=== PATIENT | female | born 1960 | race Caucasian/White ===

== ENCOUNTER 2020-02-06 07:45 | Outpatient (CLI) | payer OTHER, SELFPAY ==
--- NOTE | 2020-02-06 07:54 | US_ITS ---
WS: [id number] ULTRASOUND BREAST LEFT TECHNIQUE: Ultrasound left breast focused area of concern. CLINICAL INFORMATION: PROBABLE INTRAMAMMARY LYMPH NODE 1200 LT BREAST COMPARISON: Ultrasound August 10, 2019 FINDINGS: At the 12:00 position again seen is the ovoid shaped lesion most consistent with intramammary lymph n ode measuring 1.0 x 0.5 x 0.9 cm. This is unchanged from previous. Tiny cyst at the 3:00 position measuring 3 mm. Additional small cystic lesion at the 3:00 position me asuring 4.2 x 4.6 x 5.1 mm. This is unchanged from previous. US/US breast LT limited* [id number] IMPRESSION: BI-RADS 2 benign RECOMMEND RETURN TO ANNUAL SCREENING MAMMOGRAPHY.
== END 2020-02-06 07:46 | disposition home or self-care (01) ==
LOC: RADSHAW 07:49
PROVIDERS: Family Provider Nurse Practitioner; PCP Nurse Practitioner; Visit Provider Nurse Practitioner
DX: N60.02 Solitary cyst of left breast (principal); R92.8 Other abnormal and inconclusive findings on diagnostic imaging of breast
CPT/HCPCS: 76642

== ENCOUNTER → 2020-07-04 10:52 | Outpatient (BNVA) | payer OTHER, SELFPAY | PROVIDERS: Family Provider Nurse Practitioner; Visit Provider Obstetrics & Gynecology | DX: N90.89 Other specified noninflammatory disorders of vulva and perineum (principal) | CPT/HCPCS: 88305 ==

== ENCOUNTER 2020-08-03 09:20 | Outpatient (CLI) | payer OTHER, SELFPAY ==
--- NOTE | 2020-08-03 09:30 | MM_ITS ---
WS: [id number] BILATERAL DIGITAL SCREENING MAMMOGRAPHY WITH CAD CLINICAL INFORMATION: screening HISTORY: Screening mammogram. No current complaints. COMPARISON: TECHNIQUE: Bilateral CC and MLO views. FINDINGS: The breasts are composed of heterogeneous fibroglandular density tissue, which can limit the detectio n of small underlying mass lesions. No suspicious mass, asymmetry, calcifications, or architectural d istortion. No evidence of malignancy. MM/[place] [id number] IMPRESSION: BI-RADS: 2-Benign FOLLOW UP: 1 Year Follow-up Recommend return to annual screening mammography.
== END 2020-08-03 09:21 | disposition home or self-care (01) ==
LOC: RADSHAW 09:23
PROVIDERS: PCP Nurse Practitioner; Visit Provider Obstetrics & Gynecology
DX: Z12.31 Encounter for screening mammogram for malignant neoplasm of breast (principal)
CPT/HCPCS: 77067

== ENCOUNTER → 2020-10-30 14:05 | Outpatient (BNVA) | payer OTHER, SELFPAY | PROVIDERS: PCP Nurse Practitioner; Visit Provider Obstetrics & Gynecology | DX: N90.89 Other specified noninflammatory disorders of vulva and perineum (principal) | CPT/HCPCS: 88305 ==

== ENCOUNTER → 2021-06-26 10:10 | Outpatient (BNVA) | payer OTHER, SELFPAY | PROVIDERS: PCP Nurse Practitioner; Visit Provider Obstetrics & Gynecology | DX: Z12.4 Encounter for screening for malignant neoplasm of cervix (principal); N90.4 Leukoplakia of vulva | CPT/HCPCS: 88175 ==

== ENCOUNTER 2021-08-07 11:17 | Outpatient (CLI) | payer OTHER, SELFPAY ==
--- NOTE | 2021-08-07 11:30 | MM_ITS ---
WS: [id number] BILATERAL DIGITAL SCREENING MAMMOGRAPHY WITH CAD CLINICAL INFORMATION: SCREENING HISTORY: Screening mammogram. No current complaints. COMPARISON: August 03, 2020 TECHNIQUE: Bilateral CC and MLO views. FINDINGS: Scattered fibroglandular densities bilaterally. Dense breast tissue upper outer left breast is unchan ged. No suspicious focal mass, asymmetry, calcifications, or architectural distortion. No evidence of malignancy. MM/[place] [id number] IMPRESSION: BI-RADS: 2-Benign FOLLOW UP: 1 Year Follow-up Recommend return to annual screening mammography.
== END 2021-08-07 11:18 | disposition home or self-care (01) ==
LOC: RADSHAW 11:21
PROVIDERS: PCP Nurse Practitioner; Visit Provider Obstetrics & Gynecology
DX: Z12.31 Encounter for screening mammogram for malignant neoplasm of breast (principal)
CPT/HCPCS: 77067

== ENCOUNTER 2022-08-15 07:00 | Outpatient (CLI) | payer OTHER, SELFPAY ==
--- NOTE | 2022-08-15 07:15 | MM_ITS ---
WS: [id number] Bilateral screening 3D tomosynthesis digital mammogram, 08/15/2022 Clinical Data: Z12.39 - Encounter for other screening for malignant neop... Comparison: 08/07/2021, 08/03/2020, 08/10/2019, 07/15/2019, 06/18/2018, 07/15/2017, 04/21/2016, 03/28/2015, 01/28, 01/12/2013, 07/28/2011, 01/11/2010, 12/22/2028, 12/09/2006. Findings: The breast parenchymal pattern shows fibroglandular tissue No spiculated masses or clustered calcific ations are seen. There are no secondary signs of carcinoma. MM/[place] [id number] Impression: 1. Negative bilateral mammogram unchanged. 2. Recommend annual screening mammograms. BIRADS: 1-Negative FOLLOW UP: 1 Year Follow-up The CAD roller checker was used.
== END 2022-08-15 07:01 | disposition home or self-care (01) ==
LOC: RAD 07:01
PROVIDERS: PCP Nurse Practitioner; Visit Provider Obstetrics & Gynecology
DX: Z12.31 Encounter for screening mammogram for malignant neoplasm of breast (principal)
CPT/HCPCS: 77063; 77067

== ENCOUNTER 2023-08-20 10:00 | Day surgery (SDC) | payer OTHER, SELFPAY ==
[2023-08-20 10:18] VITALS: BP 163/102; PULSE 58; RESP 18; TEMP 36.3; O2SAT 97
--- NOTE | 2023-08-20 10:19 | P.ANESASSM_ITS ---
Pre-Anesthetic Assessment Height/Weight: Height 1.52 m Weight 74.843 kg Preop Diagnosis: screening Operation Date: 08/20/23 11:00 Proposed Procedures p Colonoscopy 84069,Z12.11(Not Applicable) - Jakub Alonso MD Was Beta Lito taken within 24 hours: Yes Was Clonidine taken within 24 hours: N/A Last Intake: 23:00 Social No alcohol and No tobacco Exam alert, oriented x 3, clear to auscultation bilaterally and regular rate & rhythm Airway Submandibular: within normal limits Cervical ROM: within normal limits Mallampati: Class II Dentition: partials (upper) Pulmonary Sleep Apnea (CPAP) and None reported CV/HEM Hypertension and Palpitations None reported Hepatic None reported GI Gastroesophageal Reflux Disease Metabolic None reported Musc/skel Lower Back Pain and Osteoarthritis/DJD Neuropsych None reported Anesthetic Plan ASA status: 3 Anesthesia: MAC Risk of > 500 ml blood loss (7ml/kg in children): No Medications/Allergies Home Medications Medication Instructions Recorded Confirmed Last Taken Type aspirin 81 mg tablet,delayed 81 mg PO DAILY 06/25/20 08/19/23 08/18/23 History release gabapentin 600 mg tablet 600 mg PO TID 06/25/20 08/20/23 08/20/23 History magnesium oxide 400 mg PO DAILY 06/25/20 08/19/23 08/18/23 History methocarbamol 500 mg tablet 500 mg PO TID PRN muscle spasms 06/25/20 08/19/23 08/18/23 History naproxen sodium 220 mg capsule 220 mg PO BID PRN Pain 06/25/20 08/19/23 08/18/23 History (Aleve) omeprazole 20 mg capsule,delayed 20 mg PO DAILY 06/25/20 08/19/23 08/20/23 History release simvastatin 20 mg tablet 20 mg PO DAILY 06/25/20 08/19/23 08/18/23 History tramadol 50 mg tablet 50 mg PO BID 06/25/20 08/19/23 08/20/23 History carvedilol 6.25 mg tablet 6.25 mg PO BID #180 tabs 06/30/20 08/19/23 08/20/23 Rx lisinopril 20 mg tablet 20 mg PO DAILY #90 tabs 09/03/20 08/19/23 08/18/23 Rx conjugated estrogens 0.625 mg/gram See Rx Instructions vaginal .weekly 06/26/21 08/19/23 08/18/23 History vaginal cream (Premarin) clobetasol 0.05 % topical cream 1 applic topical .weekly #30 grams 07/20/23 08/19/23 08/18/23 Rx ferrous sulfate 325 mg (65 mg 325 mg PO DAILY 08/19/23 08/19/23 08/18/23 History iron) tablet (iron) Allergies Allergy/AdvReac Type Severity Reaction Status Date / Time codeine Allergy Upset GI Verified 08/19/23 12:47 [facility] Anesthesia Medical History Benign essential hypertension Diagnosed in her 40s. She used to follow-up with Dr. Abarca in cardiology but now follows up with her primary care provider. Blood pressures are well controlled with medication. Chronic back pain Takes pain medication for this managed by primary care provider and gabapentin for associated neuropathy. GERD (gastroesophageal reflux disease) Symptoms controlled with medication High cholesterol Diagnosed in 2014 and controlled with medication managed by her primary care provider No pertinent past medical history Denies diabetes, seizures, DVT/PE, asthma PMD: Mabry Surgical History S/P dilation and curettage 05/20/2018-----> hysteroscopy and D&C under ultrasound guidance done for stenotic cervix and postmenopausal bleeding by Dr. Sin at [facility] [place]. At time of hysteroscopy no lesions noted in the endocervical endometrial cavity and endometrial curettings were obtained and pathology of this showed------> atrophic endometrium with benign superficial myometrium, no malignancy hyperplasia or endometritis. S/P tubal ligation 1997--> done laparoscopically through her umbilicus. 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
[2023-08-20] MEDS: sodium chloride 0.9% 1,000 ML 30 ML IV (10:20)
--- NOTE | 2023-08-20 10:21 | W.PM.OPSFHP ---
Same Day Surgery H&P Indication for Procedure/HPI DATE OF PROCEDURE: August 20, 2023 CHIEF COMPLAINT/INDICATIONFOR SURGICAL PROCEDURE: screening for colon cancer PREOP DIAGNOSIS: encounter for screening of colon cancer PLANNED PROCEDURE: Operation Date: 08/20/23 11:00 Proposed Procedures p Colonoscopy 20506,Z12.11(Not Applicable) - Jakub Alonso MD Medications/Allergies* Home Medications Medication Instructions Recorded Confirmed Type aspirin 81 mg tablet,delayed 81 mg PO DAILY 06/25/20 08/19/23 History release gabapentin 600 mg tablet 600 mg PO TID 06/25/20 08/20/23 History magnesium oxide 400 mg PO DAILY 06/25/20 08/19/23 History methocarbamol 500 mg tablet 500 mg PO TID PRN muscle spasms 06/25/20 08/19/23 History naproxen sodium 220 mg capsule 220 mg PO BID PRN Pain 06/25/20 08/19/23 History (Aleve) omeprazole 20 mg capsule,delayed 20 mg PO DAILY 06/25/20 08/19/23 History release simvastatin 20 mg tablet 20 mg PO DAILY 06/25/20 08/19/23 History tramadol 50 mg tablet 50 mg PO BID 06/25/20 08/19/23 History conjugated estrogens 0.625 mg/gram See Rx Instructions vaginal .weekly 06/26/21 08/19/23 History vaginal cream (Premarin) ferrous sulfate 325 mg (65 mg 325 mg PO DAILY 08/19/23 08/19/23 History iron) tablet (iron) Allergies/Adverse Reactions Allergy/AdvReac Type Severity Reaction Status Date / Time codeine Allergy Upset GI Verified 08/19/23 12:47 Pertinent History/Comorbid Conditions* Medical History (Updated 07/10/22 @ 13:45 by Yair Marr MD) Benign essential hypertension Diagnosed in her 40s. She used to follow-up with Dr. Abarca in cardiology but now follows up with her primary care provider. Blood pressures are well controlled with medication. Chronic back pain Takes pain medication for this managed by primary care provider and gabapentin for associated neuropathy. GERD (gastroesophageal reflux disease) Symptoms controlled with medication High cholesterol Diagnosed in 2014 and controlled with medication managed by her primary care provider No pertinent past medical history Denies diabetes, seizures, DVT/PE, asthma PMD: Mabry Surgical History (Updated 06/27/20 @ 07:50 by Yair Marr MD) S/P dilation and curettage 05/20/2018-----> hysteroscopy and D&C under ultrasound guidance done for stenotic cervix and postmenopausal bleeding by Dr. Sin at [facility] [place]. At time of hysteroscopy no lesions noted in the endocervical endometrial cavity and endometrial curettings were obtained and pathology of this showed------> atrophic endometrium with benign superficial myometrium, no malignancy hyperplasia or endometritis. S/P tubal ligation 1997--> done laparoscopically through her umbilicus. 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 Family History (Updated 07/09/22 @ 13:35 by Alejandra Mathias RN) AAA (abdominal aortic aneurysm) Father Heart disease Mother Hyperlipidemia Mother Breast cancer Mother Diagnosed at age 64 Hypertension Mother Father Stroke Mother Father Brother Denies family history of Colon cancer Ovarian cancer Diabetes DVT (deep venous thrombosis) Pulmonary embolism Uterine cancer Thyroid condition Social History Substance/Drug Use: unknown Pertinent Exam Findings alert, oriented x 3, clear to auscultation bilaterally, regular rate & rhythm and procedure specific exam findings (abdomen soft and non tender) Recommendations Surgery/Procedure today Other Plans: After a complete history, physical examination and review of all available clinical data. I have offer screening colonoscopy as indicated by the current guidelines. I have discussed all the risks and benefits of the colonoscopy. Including, the risk of perforation requiring surgical intervention, rectal bleeding, incomplete colonoscopy requiring repeat procedure in 3 months, missed polyps, need for additional procedures. Patient shows understanding and wishes to proceed. Coding Level of Care Code Acute Code for Chg Fwd Diagnoses
[2023-08-20 11:03] VITALS: BP 118/52; PULSE 52; RESP 18; TEMP 36.4; O2SAT 96
[2023-08-20 11:16] VITALS: BP 117/73; PULSE 57; RESP 18; O2SAT 99
--- NOTE | 2023-08-20 11:30 | ANE.PACU2 ---
Inpatient post-anesthesia follow up: Airway intact: Yes Vital signs: Temperature 97.5 F Pulse Rate 57 Respiratory Rate 18 Blood Pressure 117/73 Pulse Oximetry 99 Oxygen Delivery Me thod Room Air Oxygen Flow Rate Fraction of Inspir ed Oxygen Hydration adequate: Yes Nausea and vomiting: No Pain level: 1 Mental status: Baseline
== END 2023-08-20 11:45 | disposition home or self-care (01) ==
PROVIDERS: PCP Nurse Practitioner Family; Visit Provider Surgery
PROC: 0DJD8ZZ Inspection of Lower Intestinal Tract, Via Natural or Artificial Opening Endoscopic (ICD-10-PCS; CPT 45378; principal; 2023-08-20 11:00)
DX: Z12.11 Encounter for screening for malignant neoplasm of colon (principal); D12.8 Benign neoplasm of rectum; Z79.82 Long term (current) use of aspirin; I10 Essential (primary) hypertension; K21.9 Gastro-esophageal reflux disease without esophagitis; G47.30 Sleep apnea, unspecified
CPT/HCPCS: 45380; 88305; J2704; J7030

== ENCOUNTER 2023-09-08 09:02 | Outpatient (CLI) | payer OTHER, SELFPAY ==
--- NOTE | 2023-09-08 09:26 | MM_ITS ---
WS: [id number] BILATERAL 3D TOMOSYNTHESIS DIGITAL SCREENING MAMMOGRAPHY WITH CAD CLINICAL INFORMATION: SCREENING HISTORY: Screening mammogram. No current complaints. COMPARISON: 08/15/2022 TECHNIQUE: Bilateral CC and MLO views. FINDINGS: The breasts are composed of heterogeneous fibroglandular density tissue, which can limit the detectio n of small underlying mass lesions. No suspicious mass, asymmetry, calcifications, or architectural d istortion. No evidence of malignancy. IMPRESSION: MM/[place] [id number] BI-RADS: 2-Benign FOLLOW UP: 1 Year Follow-up Recommend return to annual screening mammography.
== END 2023-09-08 09:03 | disposition home or self-care (01) ==
PROVIDERS: PCP Nurse Practitioner Family; Visit Provider Nurse Practitioner Family
DX: Z12.31 Encounter for screening mammogram for malignant neoplasm of breast (principal)
CPT/HCPCS: 77063; 77067

== ENCOUNTER 2023-10-21 09:47 | Outpatient (CLI) | payer OTHER, SELFPAY ==
--- NOTE | 2023-10-21 09:58 | XRR_ITS ---
PROCEDURE INFORMATION: Exam: XR Lumbosacral Spine Exam date and time: 10/21/2023 10:05 AM Age: 63 years old Clinical indication: Low back pain; Additional info: Chronic pain TECHNIQUE: Imaging protocol: Radiologic exam of the lumbosacral spine. Views: 2 or 3 views. COMPARISON: No relevant prior studies available. FINDINGS: Bones/joints: Moderate disc space narrowing L5-S1. All of the disc spaces are well maintained. No significant spurring. No fracture or dislocation. Pedicles are intact. Soft tissues: The perivertebral soft tissues are normal. XR/XR lumbar spine 2-3V* [id number] IMPRESSION: 1. No acute findings. 2. Focal degenerative disc disease.
--- NOTE | 2023-10-21 09:58 | XRR_ITS ---
PROCEDURE INFORMATION: Exam: XR Cervical Spine Exam date and time: 10/21/2023 10:05 AM Age: 63 years old Clinical indication: Neck pain; Additional info: Chronic pain TECHNIQUE: Imaging protocol: Radiologic exam of the cervical spine. Views: 2 or 3 views. COMPARISON: No relevant prior studies available. FINDINGS: Bones/joints: Moderate disc space narrowing and spurring C5 through C7. 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 No fracture or dislocation. Anatomic alignment. Soft tissues: Unremarkable. XR/XR cervical spine 3V* [id number] IMPRESSION: 1. No acute findings. 2. Degenerative changes.
== END 2023-10-21 09:48 | disposition home or self-care (01) ==
LOC: RAD 09:50
PROVIDERS: PCP Nurse Practitioner Family; Visit Provider Nurse Practitioner Family
DX: M54.2 Cervicalgia (principal); M54.9 Dorsalgia, unspecified; M50.30 Other cervical disc degeneration, unspecified cervical region; M51.37 Other intervertebral disc degeneration, lumbosacral region
CPT/HCPCS: 72040; 72100

== ENCOUNTER 2024-09-22 14:06 | Outpatient (CLI) | payer OTHER, SELFPAY ==
--- NOTE | 2024-09-22 14:08 | MM_ITS ---
WS: [id number] BILATERAL SCREENING DIGITAL TOMOSYNTHESIS MAMMOGRAM WITH CAD HISTORY: SCREENING COMPARISON: 09/08/2023, 08/15/2022, 08/07/2021 Bilateral CC and MLO views with tomosynthesis and synthetic mammography submitted. Computer aided det ection analyzed. Breast composition: There are scattered areas of fibroglandular density. No suspicious masses, microc alcifications or architectural distortion. Focal asymmetry RIGHT breast at 9:00 has been stable on se veral prior examinations extending back to 08/07/2021. No new mass or nodule. MM/MM scr BI tomosynthesis [id number] IMPRESSION: BI-RADS: 2 - Benign. FOLLOW UP: 1 Year Follow-up
== END 2024-09-22 14:07 | disposition home or self-care (01) ==
LOC: RAD 14:07
PROVIDERS: PCP Nurse Practitioner Family; Visit Provider Nurse Practitioner Family
DX: Z12.31 Encounter for screening mammogram for malignant neoplasm of breast (principal); R92.323 Mammographic fibroglandular density, bilateral breasts; N64.89 Other specified disorders of breast
CPT/HCPCS: 77063; 77067

== ENCOUNTER 2024-12-01 10:50 | Outpatient (CLI) | payer OTHER, SELFPAY ==
--- NOTE | 2024-12-01 11:00 | XRR_ITS ---
PROCEDURE INFORMATION: Exam: XR Cervical Spine Exam date and time: 12/01/2024 11:15 AM Age: 64 years old Clinical indication: Cervicalgia; Patient HX: Pain in neck and upper back, upper back pain runs across laterally, numbness in hands; Additional info: M54.2 - cervicalgia TECHNIQUE: Imaging protocol: Radiologic exam of the cervical spine. Views: 2 or 3 views. COMPARISON: CR XR cervical spine 3V* [id number] 10/21/2023 10:05 AM FINDINGS: Bones/joints: A fusion anomaly is noted at the C3-C4 level. Prominent degenerative disc disease is noted at the C5-C6 level along with vertebral body spurring. No fracture or subluxation noted. Soft tissues: Unremarkable. XR/XR cervical spine 3V* [id number] IMPRESSION: No acute findings.
--- NOTE | 2024-12-01 11:00 | XRR_ITS ---
PROCEDURE INFORMATION: Exam: XR Thoracic Spine Exam date and time: 12/01/2024 11:15 AM Age: 64 years old Clinical indication: Pain in thoracic spine; Patient HX: Pain in neck and upper back, upper back pain runs across laterally, numbness in hands; Additional info: M54.9 - dorsalgia, unspecified TECHNIQUE: Imaging protocol: Radiologic exam of the thoracic spine. Views: 3 views. COMPARISON: CR XR cervical spine 3V* [id number] 12/01/2024 11:15 AM FINDINGS: Bones/joints: Mild scoliosis is noted.No significant arthritic changes are noted. No acute fracture or subluxation noted. Soft tissues: Unremarkable. XR/XR thoracic spine 3V* [id number] IMPRESSION: No acute findings.
== END 2024-12-01 10:51 | disposition home or self-care (01) ==
LOC: RAD 10:57
PROVIDERS: PCP Nurse Practitioner Family; Visit Provider Nurse Practitioner Family
DX: M54.2 Cervicalgia (principal); M54.9 Dorsalgia, unspecified; M41.84 Other forms of scoliosis, thoracic region; M43.22 Fusion of spine, cervical region
CPT/HCPCS: 72040; 72072

== ENCOUNTER 2025-01-06 07:46 | Outpatient (CLI) | payer OTHER, SELFPAY ==
--- NOTE | 2025-01-06 08:00 | MR_ITS ---
WS: [id number] MRI THORACIC SPINE WITHOUT CONTRAST TECHNIQUE: Sagittal T1, T2 and STIR imaging. Axial T2 imaging. Noncontrast imaging obtained. CLINICAL INFORMATION: G89.29 - Other chronic pain COMPARISON: None. FINDINGS: Moderate to advanced thoracic kyphosis. No acute compression fractures. Cord signal appears normal. Normal CSF pulsation artifact in the dorsal spinal canal. Minimal anterior wedging in the midthoracic spine. Mild spondylitic changes. Tiny syrinx partially visualized in the lower cervical and upper thoracic cord. Additional larger syrinx in the lower thoracic cord measuring approximately 2 mm in AP dimension. Cord signal is otherwise normal. No significant disc extrusions or protrusions. Large esophageal hiatal hernia with partial intrathoracic stomach. Normal caliber descending thoracic aorta. Adrenal glands are normal. Moderate facet arthropathy lower thoracic spine. MR/MR thoracic spin wo con* [id number] IMPRESSION: 1. Moderate thoracic kyphosis. No acute compression fractures. 2. Two Millimeter syrinx in the lower thoracic cord at T8-T10. 3. Tiny syrinx partially visualized in the lower cervical spine. This could be further evaluated with cervical spine MRI. 4. Mild chronic anterior wedging T5-T7. 5. Tiny central protrusions at T5-T7. 6. Large esophageal canal hernia with partial intrathoracic stomach.
== END 2025-01-06 07:47 | disposition home or self-care (01) ==
LOC: RAD 07:48
PROVIDERS: PCP Nurse Practitioner Family; Visit Provider Nurse Practitioner Family
DX: G89.29 Other chronic pain (principal); M40.294 Other kyphosis, thoracic region; R93.7 Abnormal findings on diagnostic imaging of other parts of musculoskeletal system; G95.0 Syringomyelia and syringobulbia; M48.54XA Collapsed vertebra, not elsewhere classified, thoracic region, initial encounter for fracture; K44.9 Diaphragmatic hernia without obstruction or gangrene; R93.3 Abnormal findings on diagnostic imaging of other parts of digestive tract; M47.894 Other spondylosis, thoracic region
CPT/HCPCS: 72146

== ENCOUNTER 2025-04-26 11:05 | Outpatient (CLI) | payer OTHER, SELFPAY ==
--- NOTE | 2025-04-26 11:12 | XR_ITS ---
WS: [id number] Mandible series, 4 views, 04/26/2025 Clinical Data: R68.84 - Jaw pain Comparison: None. Findings: No fractures or dislocations are seen. The mandibular condyle and rami are intact. The patient has poor dentition. The temporomandibular joints show no definite erosions or displacement. XR/XR mandible <4V [id number] Impression: Negative mandible series.
== END 2025-04-26 11:06 | disposition home or self-care (01) ==
LOC: LAB 11:06 → RAD 11:07
PROVIDERS: PCP Nurse Practitioner Family; Visit Provider Nurse Practitioner Family
DX: R68.84 Jaw pain (principal)
CPT/HCPCS: 70100

== ENCOUNTER 2025-09-25 13:44 | Outpatient (CLI) | payer OTHER, SELFPAY ==
--- NOTE | 2025-09-25 14:00 | MM_ITS ---
WS: [id number] BILATERAL 3D TOMOSYNTHESIS DIGITAL SCREENING MAMMOGRAPHY WITH CAD CLINICAL INFORMATION: Z12.31 - Encounter for screening mammogram for malignant ... HISTORY: Screening mammogram. No current complaints. COMPARISON: 09/22/2024 TECHNIQUE: Bilateral CC and MLO views. FINDINGS: Scattered fibroglandular densities bilaterally. No suspicious focal mass, asymmetry, calcifications, or architectural distortion. No evidence of malignancy. A few incidental punctate calcifications. MM/MM [facility] tomosynthesis [id number] IMPRESSION: DENSITY: There are scattered areas of fibroglandular density. BI-RADS: 2 - Benign. FOLLOW UP: 1 Year Follow-up Recommend return to annual screening mammography.
== END 2025-09-25 13:45 | disposition home or self-care (01) ==
LOC: RAD 13:44
PROVIDERS: PCP Nurse Practitioner Family; Visit Provider Nurse Practitioner Women's Health
DX: Z12.31 Encounter for screening mammogram for malignant neoplasm of breast (principal); R92.323 Mammographic fibroglandular density, bilateral breasts; R92.1 Mammographic calcification found on diagnostic imaging of breast
CPT/HCPCS: 77063; 77067

== ENCOUNTER 2025-10-24 11:08 | Outpatient (CLI) | payer OTHER, SELFPAY ==
--- NOTE | 2025-10-24 11:17 | XRR_ITS ---
PROCEDURE INFORMATION: Exam: XR Chest Exam date and time: 10/24/2025 11:24 AM Age: 65 years old Clinical indication: Dyspnea; PT states HX of acid reflux & esophagial hernia x few years. SOB x 2 months. ; Additional info: R06.00 - dyspnea, unspecified TECHNIQUE: Imaging protocol: Radiologic exam of the chest. Views: 2 views. COMPARISON: MR thoracic spin wo con* [id number] 01/06/2025 8:00 AM FINDINGS: Lungs: Pulmonary vessels are within normal limits. Right midlung field linear scarring. Right midlung field peripheral 4 mm calcified granuloma. Pleural spaces: No pneumothorax. Heart/Mediastinum: Large hiatal hernia. Bones/joints: Achilles silhouette XR/XR chest 2V* [id number] IMPRESSION: 1. No acute pulmonary finding. 2. Large hiatal hernia.
== END 2025-10-24 11:09 | disposition home or self-care (01) ==
LOC: RAD 11:10
PROVIDERS: PCP Nurse Practitioner Family; Visit Provider Nurse Practitioner Family
DX: R06.00 Dyspnea, unspecified (principal); K44.9 Diaphragmatic hernia without obstruction or gangrene
CPT/HCPCS: 71046

== ENCOUNTER 2025-11-29 06:23 | Day surgery (SDC) | payer OTHER, SELFPAY ==
[2025-11-29 06:39] VITALS: BP 162/82; PULSE 58; RESP 16; TEMP 36.4; O2SAT 97; BMI 26.2
--- NOTE | 2025-11-29 06:46 | P.HPUD_ITS ---
Surgery/Procedure H&P Update DATE OF PROCEDURE: November 29, 2025 DATE H&P PERFORMED: 11/01/25 H&P UPDATE INFORMATION: I have reviewed H&P completed within last 30 days, I have examined patient prior to procedure, No changes to prior documentation, H&P is in [facility] EMR on date indicated and Risks and benefits of the procedure reviewed PLANNED PROCEDURE: Operation Date: 11/29/25 07:40 Proposed Procedures p EGD EGD with Biopsy [id number] K44.9(Not Applicable) - Jakub Alonso MD
--- NOTE | 2025-11-29 07:15 | ANES.PREANE2 ---
Pre-Anesthetic Assessment Height/Weight: Height 1.65 m Weight 71.668 kg Temp Pulse Resp BP Pulse Ox O2 Del Method 97.5 F L 58 L 16 162/82 97 Room Air 11/29/25 06:39 11/29/25 06:39 11/29/25 06:39 11/29/25 06:39 11/29/25 06:39 11/29/25 06:39 Operation Date: 11/29/25 07:40 Proposed Procedures p EGD EGD with Biopsy [id number] K44.9(Not Applicable) - Jakub Alonso MD Familial anesthetic complications: none Was Beta Lito taken within 24 hours: Yes Was Clonidine taken within 24 hours: N/A Last intake: Intake Last Liquid Date 11/28/25 Last Liquid Time 19: Last Solid Date 11/28/25 Last Solid Time 19:30 Social No alcohol and No tobacco Exam alert and oriented x 3 Airway Submandibular: within normal limits Cervical ROM: within normal limits Mallampati: Class II Dentition: partials History/ROS No significant history except as noted Pulmonary Exertional Dyspnea and Sleep Apnea (cpap) CV/HEM Arrythmia (on carvedilol) and Hypertension None reported Hepatic None reported GI Gastroesophageal Reflux Disease (controlled with omeprazole) Metabolic Hyperlipidemia Musc/skel Lower Back Pain and Osteoarthritis/DJD Neuropsych None reported Anesthetic Plan ASA status: 3 Anesthesia: Anesthesia Evaluation and MAC Risk of > 500 ml blood loss (7ml/kg in children): No Medications/Allergies Home Medications ?Medication ?Instructions ?Recorded ?Confirmed ?Last Taken ?Type aspirin 81 mg tablet,delayed 81 mg PO DAILY 06/25/20 11/29/25 11/28/25 History release magnesium oxide 400 mg PO DAILY 06/25/20 11/29/25 11/28/25 History calcium acetate(phosphat bind) 667 667 mg PO DAILY 10/05/24 11/29/25 11/28/25 History mg tablet cpap 1 dose as directed .nightly 10/05/24 11/29/25 11/28/25 History carvedilol 6.25 mg tablet 6.25 mg PO BID #180 tabs 01/16/25 11/29/25 11/28/25 Rx clobetasol 0.05 % topical cream 1 applic topical .weekly #30 grams 07/27/25 11/29/25 11/28/25 Rx tramadol 50 mg tablet 50 mg PO BID PRN pain #60 tabs 08/09/25 11/29/25 11/28/25 Rx simvastatin 40 mg tablet 40 mg PO DAILY #90 tabs 09/25/25 11/29/25 11/28/25 Rx gabapentin 600 mg tablet 600 mg PO TID 11/27/25 11/29/25 11/28/25 History lisinopril 20 mg tablet 20 mg PO DAILY 11/27/25 11/29/25 11/28/25 History omeprazole 20 mg capsule,delayed 20 mg PO DAILY 11/27/25 11/29/25 11/28/25 History release Allergies Allergy/AdvReac Type Severity Reaction Status Date / Time codeine Allergy Upset GI Verified 11/29/25 06:38 Current Medications Generic Name Dose Route Start Last Admin Trade Name Freq PRN Reason Stop Dose Admin Sodium Chloride 1,000 mls @ 15 mls/hr 11/29/25 06:30 11/29/25 06:53 Sodium Chloride 0.9% IV 11/30/25 06:29 15 mls/hr .Q24H PRN Administration COLONOSCOPY FLUIDS PFSH Anesthesia Medical History Obstructive sleep apnea High cholesterol Diagnosed in 2014 and controlled with medication managed by her primary care provider Chronic back pain Takes pain medication for this managed by primary care provider and gabapentin for associated neuropathy. No pertinent past medical history Denies diabetes, seizures, DVT/PE, asthma PMD: Mabry GERD (gastroesophageal reflux disease) Symptoms controlled with medication Benign essential hypertension Diagnosed in her 40s. She used to follow-up with Dr. Abarca in cardiology but now follows up with her primary care provider. Blood pressures are well controlled with medication. Surgical History S/P tubal ligation 1997--> done laparoscopically through her umbilicus. S/P dilation and curettage 05/20/2018-----> hysteroscopy and D&C under ultrasound guidance done for stenotic cervix and postmenopausal bleeding by Dr. Sin at [facility] [place]. At time of hysteroscopy no lesions noted in the endocervical endometrial cavity and endometrial curettings were obtained and pathology of this showed------> atrophic endometrium with benign superficial myometrium, no malignancy hyperplasia or endometritis. 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 Family History Mother Hypertension Stroke Breast cancer Diagnosed at age 64 Heart disease Hyperlipidemia Father Hypertension Stroke AAA (abdominal aortic aneurysm) Brother Stroke Denies family history of Colon cancer Ovarian cancer Diabetes DVT (deep venous thrombosis) Pulmonary embolism Uterine cancer Thyroid disease Social History Smoking and tobacco/nicotine status: never used tobacco/nicotine Alcohol intake: never Substance/Drug Use: never Adopted: No Caregiver/support person: No Lives independently: No Household members: spouse Marital status: service: No Current occupational status: employed Sexually active: Yes Do you think of yourself as: Straight/Heterosexual Current gender identity: Female
[2025-11-29 07:41] VITALS: BP 134/61; PULSE 61; RESP 18; TEMP 36.6; O2SAT 95
[2025-11-29 07:59] VITALS: BP 138/80; PULSE 60; RESP 17; O2SAT 96
--- NOTE | 2025-11-29 08:15 | ANE.PACU2 ---
Inpatient post-anesthesia follow up: Airway intact: Yes Vital signs: Temperature 97.9 F Pulse Rate 60 Respiratory Rate 17 Blood Pressure 138/80 Pulse Oximetry 96 Oxygen Delivery Me thod Room Air Oxygen Flow Rate Fraction of Inspir ed Oxygen Hydration adequate: Yes Nausea and vomiting: No Pain level: 1 Mental status: Baseline
== END 2025-11-29 08:18 | disposition home or self-care (01) ==
PROVIDERS: PCP Nurse Practitioner Family; Visit Provider Surgery
PROC: 0DJ08ZZ Inspection of Upper Intestinal Tract, Via Natural or Artificial Opening Endoscopic (ICD-10-PCS; principal; 2025-11-29 07:40)
DX: K44.9 Diaphragmatic hernia without obstruction or gangrene (principal); K29.30 Chronic superficial gastritis without bleeding; G47.33 Obstructive sleep apnea (adult) (pediatric); Z99.89 Dependence on other enabling machines and devices; I49.9 Cardiac arrhythmia, unspecified; I10 Essential (primary) hypertension; K21.9 Gastro-esophageal reflux disease without esophagitis; E78.5 Hyperlipidemia, unspecified; Z79.82 Long term (current) use of aspirin
CPT/HCPCS: 43239; 88305; J2704; J3490; J7030; J9999